=== PATIENT | female | born 1965 | race Caucasian/White ===

== ENCOUNTER 2022-04-18 12:00 | Emergency (ER) | payer OTHER, SELFPAY ==
[2022-04-18 13:40] VITALS: BP 140/81; PULSE 86; RESP 18; TEMP 36.8; O2SAT 98; BMI 20.3
--- NOTE | 2022-04-18 13:43 | XR_ITS ---
PROCEDURE INFORMATION: Exam: XR Right Foot Exam date and time: 04/18/2022 1:42 PM Age: 56 years old Clinical indication: Injury or trauma; Other: dropped fence post on her right foot last Tuesday. Blunt trauma; Additional info: Dropped fence post on foot TECHNIQUE: Imaging protocol: Radiologic exam of the Right foot. Views: 3 or more views. COMPARISON: No relevant prior studies available. FINDINGS: Bones/joints: Transverse slightly displaced fracture of the midshaft of the 2nd metatarsal with apex dorsal angulation. There is no evidence of joint malalignment or dislocation. Calcaneal spurs are present. Soft tissues: Overlying soft tissue swelling. IMPRESSION: 1. Transverse slightly displaced fracture of the midshaft of the 2nd metatarsal with apex dorsal angulation. 2. Overlying soft tissue swelling. 3. No evidence of acute dislocation.
[2022-04-18 13:57] VITALS: BP 140/81; PULSE 86; RESP 18; TEMP 36.8; O2SAT 98
--- NOTE | 2022-04-18 14:12 | EXP.UTC ---
Discharge Plan Disposition Patient Disposition: Home, Self-Care Condition: Good Referrals Follow up/Referrals: Provider,Referral, [Primary Care Provider] - 04/19/22 (dr ragsdale, call for appointment in am) Carlos ([facility]),JESSICA Schwartz [Emergency Provider] - See instructions Activity Restrictions/Add. Instructions Additional Instructions/Restrictions: Weightbearing as tolerated rest Ice with cold pack for 20 minutes remove may repeat for comfort every hour waking boot for support and swelling no less in the shower. Be sure not too tight but not to lose either Elevate with foot above your heart as much as possible to help reduce swelling and therefore pain Ibuprofen every 6 hours as needed for pain or inflammation. If needs something more you can take Tylenol every 4 hours as needed as long as her primary care has told he was okayed for you to take both. If improving any do not need to follow-up you can bring begin exercising 2-3 weeks after injury. Follow-up immediately if new or worsening symptoms or no noticeable improvement over the next 3-[address] Ragsdale office tomorrow for appointment Clinical Impressions Clinical Impression: Fractured metatarsal bone Stand Alone Forms Stand Alone Forms: Work/School Release Instructions Patient Instructions: DI for Toe Fracture Discharge ED Provider: Carlos ([facility])Lana [facility] General Stated complaint: AO 04/12@Home RT foot pain dropped fence post Mode of Arrival: Ambulatory Source of Information: Patient Limitations: No Limitations Time Seen by Provider: 04/18/22 14:12 Description of Symptoms (Recalled from Triage Doc. by RN): PATIENT C/O INJURY TO RIGHT TOES AFTER A FENCE POST FELL ON HER FOOT ON TUESDAY HEENT Symptoms (Recalled from RN notes): No Resp Symptoms (Recalled from RN notes): No Skin Symptoms (Recalled from RN notes): No MS Symptoms (Recalled from RN notes): Yes Functional Status (Recalled from RN notes): WNL History of Present Illness Provider Complaint: 56 yr old female presents for rt toe pain. pt states a fence post feel on her foot a few days ago Related Data Allergies Allergy/AdvReac Type Severity Reaction Status Date / Time No Known Allergies Allergy Verified 04/18/22 13:53 Worker's Comp Is this a Worker's Comp case?: No PFSH [facility] Medical History , [employer]) History of gastroesophageal reflux (GERD) Thyroid disease Social History , [employer]) Smoking Status: Unknown if ever smoked alcohol intake: never current occupational status: other Travel in the last 8 weeks: None ROS Obtained: Yes All systems reviewed & no additional complaints except as documented Constitutional Constitutional: Reports system reviewed and no additional complaints, except as documented Eyes Eyes: Reports system reviewed and no additional complaints, except as documented ENT Ears, Nose, Mouth, and Throat: Reports system reviewed and no additional complaints, except as documented Cardiovascular Cardiovascular: Reports system reviewed and no additional complaints, except as documented Respiratory Respiratory: Reports system reviewed and no additional complaints, except as documented Gastrointestinal Gastrointestingal: Reports system reviewed and no additional complaints, except as documented Musculoskeletal Musculoskeletal: Reports system reviewed and no additional complaints, except as documented, Reports as per HPI and Reports arthralgias Integumentary/Breasts Skin/Breast: Reports system reviewed and no additional complaints, except as documented Neurologic Neurologic: Reports system reviewed and no additional complaints, except as documented Endocrine Endocrine: Reports system reviewed and no additional complaints, except as documented Hematologic/Lymphatic Henatologic/Lymphatic: Reports system reviewed and no additional complaints, except as documented Allergi
== END 2022-04-18 14:33 | disposition home or self-care (01) ==
PROVIDERS: Emergency Provider Nurse Practitioner Family
DX: S92.321A Displaced fracture of second metatarsal bone, right foot, initial encounter for closed fracture (principal); W22.8XXA Striking against or struck by other objects, initial encounter
CPT/HCPCS: 73630; 99213; G0463

== ENCOUNTER → 2023-04-11 15:30 | Outpatient (CLI) | payer BC, SELFPAY ==
[2023-04-11 16:56] LABS: Basophils # 0.1 K/mm3 (0-0.2); Basophils % 1.4 % (0.1-2.0); Eosinophils # 0.4 K/mm3 (0.0-0.4); Eosinophils % 5.5 % (0.1-12.0); Hemoglobin 14.4 g/dL (12.2-16.2); Lymphocytes # 3.3 K/mm3 (0.7-4.5); Lymphocytes % 44.9 % (10-50); Mean Corpuscular HGB Conc 33.5 g/dL (31.8-35.4); Mean Corpuscular Hemoglobin 31.9 pg (27.0-31.2); Mean Corpuscular Volume 95.3 fl (81-99); Mean Platelet Volume 8.7 fl (7.4-10.4); Monocytes # 0.6 K/mm3 (0.1-1.0); Monocytes % 7.4 % (1.7-9.3); Neutrophils % 40.8 % (37.0-80.0); Platelet Count 288 K/mm3 (142-424); Red Blood Count 4.51 M/mm3 (4.20-5.40); Red Cell Distribution Width 13.4 % (11.5-17.5); White Blood Count 7.4 K/mm3 (4.8-10.8)
[2023-04-11 17:54] LABS: Alanine Aminotransferase 20 U/L (12-78); Albumin/Globulin Ratio 1.3 (1.1-1.8); Alkaline Phosphatase 73 U/L (38-126); Aspartate Amino Transferase 36 U/L (14-36); Bilirubin,Total 0.2 mg/dl (0.2-1.3); Blood Urea Nitrogen 18 mg/dl (7-17); Calcium 9.4 mg/dl (8.4-10.2); Carbon Dioxide 34 mmol/L (22.0-30.0); Chloride 96 mmol/L (98-107); Estimated Glomerular Filt Rate 87 ml/min (>60); GFR (African American) 105 ML/MIN (>60); Glucose 65 mg/dl (74-100); Sodium 138 mmol/L (136-145)
[2023-04-11 18:13] LABS: T4 (Thyroxine) 9.6 ug/dl (5.53-11.0); Triiodothryronine (T3) Uptake 32 % (23.5-40.5)
[2023-04-11 18:27] LABS: Thyroid Stimulating Hormone 0.53 uIU/mL (0.465-4.68)
[2023-04-11 21:01] LABS: Free T4 (Free Thyroxine) 1.43 ng/dl (0.78-2.19)
== END ==
PROVIDERS: PCP Nurse Practitioner Family; Visit Provider Nurse Practitioner Family
DX: E03.9 Hypothyroidism, unspecified (principal); F41.9 Anxiety disorder, unspecified
CPT/HCPCS: 80053; 84436; 84439; 84443; 84479; 85025

== ENCOUNTER 2024-05-24 12:02 | Outpatient (CLI) | payer BC, SELFPAY ==
[2024-05-24 17:29] LABS: Sodium 138 mmol/L (136-145)
[2024-05-24 17:30] LABS: Anion Gap 6.6 mEq/L (5-15); Blood Urea Nitrogen 19 mg/dl (7-17); Calcium 9.6 mg/dl (8.4-10.2); Carbon Dioxide 34 mmol/L (22.0-30.0); Chloride 101 mmol/L (98-107); Estimated Glomerular Filt Rate 74 ml/min (>60); GFR (African American) 90 ML/MIN (>60); Glucose 84 mg/dl (74-100); Potassium 3.6 mmoL/L (3.5-5.1)
[2024-05-24 18:02] LABS: Thyroid Stimulating Hormone 0.44 uIU/mL (0.465-4.68)
[2024-05-24 18:12] LABS: HIV Combo NEGATIVE (Negative)
[2024-05-25 10:24] LABS: HCV Ab Non Reactive (Non Reactive)
== END 2024-05-24 23:59 | disposition home or self-care (01) ==
LOC: LAB.DROPOF 05-25 09:38
PROVIDERS: PCP Family Medicine; Visit Provider Family Medicine
DX: E03.9 Hypothyroidism, unspecified (principal); Z11.59 Encounter for screening for other viral diseases
CPT/HCPCS: 80048; 84443; 86803; 87389